=== PATIENT | female | born 1925 | race Caucasian/White ===

== ENCOUNTER → 2017-05-06 | Outpatient (CLI) | payer OTHER ==
[~2017-05-06] MED LIST: Aleve PO; Atarax,Vistaril PO; CALCIO DEL MAR500 MG PO; Centrum Silver,Certa PO; Fish Oil PO; Norvasc PO; Vicodin,Norco 5/325 PO; oxyCODONE PO
== END | disposition home or self-care (01) ==
DX: R13.10 Dysphagia, unspecified (principal)
CPT/HCPCS: 92611 GN; G8996 GN; G8997 GN; G8998 GN